=== PATIENT | male | born 1985 ===

== ENCOUNTER 2016-11-28 09:10 | Day surgery (SDC) | payer OTHER ==
[2016-11-21 10:21] VITALS: BMI 32.3
[2016-11-21 10:23] VITALS: RESP 18
[2016-11-28 10:09] LABS: URINE BILIRUBIN NEGATIVE (NEGATIVE); URINE BLOOD NEGATIVE (NEGATIVE); URINE COLOR YELLOW (YELLOW); URINE GLUCOSE (UA) NEG (Normal); URINE KETONE NEGATIVE (NEGATIVE); URINE LEUKOCYTE ESTERASE NEG Leu/uL (Negative); URINE PROTEIN NEGATIVE (NEGATIVE); URINE UROBILINOGEN 0.2-1.0 mg/dL (0.2-1.0); WBC URINE < 1 /hpf (0-5)
[2016-11-28] MEDS ORDERED: Propofol 10 mg/ml Inj (100 ml) IV SCH (12:15)
[2016-11-28] MEDS ORDERED: Remifentanil 2 MG PDS IV ONE (12:34)
[2016-11-28] MEDS ORDERED: Bupivacaine HCl 0.5% PF (30 ml) Inj ONE (12:39)
[2016-11-28] MEDS ORDERED: APROTININ/FIBRINOGEN(TISSEEL) ONE (12:39)
[2016-11-28] MEDS ORDERED: Thrombin Topical 5,000 IU Spray Kit ONE (12:39)
[2016-11-28] MEDS ORDERED: Dexamethasone 4 mg/1 ml ONE (12:39)
[2016-11-28] MEDS ORDERED: SENSORCAINE 0.5% W/EPINEPHRINE 50ML MDV IJ ONE (12:41)
[2016-11-28] MEDS ORDERED: Absorbable Gelatin Sponge Size 100 ONE (12:41)
[2016-11-28] MEDS ORDERED: Rocuronium 10 mg/ml (5 ml) ONE (12:44)
[2016-11-28] MEDS ORDERED: Midazolam 2 MG/2 ML VIAL ONE (12:44)
[2016-11-28] MEDS ORDERED: Succinylcholine 200 mg/10 ml Inj IV ONE (12:44)
[2016-11-28] MEDS ORDERED: Propofol 10 mg/ml Inj (20 ML) ONE ×2 (12:44→13:24)
[2016-11-28] MEDS ORDERED: ePHEDrine 50 mg/ml Inj ONE (12:51)
[2016-11-28] MEDS ORDERED: Absorbable Gelatin Sponge Size 100 TP ONE (13:11)
[2016-11-28] MEDS ORDERED: Thrombin Topical 5,000 IU Spray Kit TOP ONE (13:11)
[2016-11-28] MEDS ORDERED: Lactated Ringer's 1,000 ML IV ONE (13:11)
[2016-11-28] MEDS ORDERED: Neostigmine Methylsulfate 3mg/3ml Syringe IV ONE (13:50)
[2016-11-28] MEDS ORDERED: Lactated Ringer's 1,000 ML IV SCH (14:25)
[2016-11-28 17:08] VITALS: BP 126/70; PULSE 69; TEMP 97.6; O2SAT 95
--- NOTE | 2016-11-29 04:40 | PN ---
SUBJECTIVE: The patient was actually admitted for surgery today. He came in under this name, i.e, Joshua Purcell; however, my office as well as his preoperative MRI as well as his worker comp surgical authorization will have his name as Moises Riley. He did bring an identification that proved his name in fact was Moises Purcell. He was brought into the OR and was thought to be anesthetized; however, at that point in time risk management been informed that as well as the administration that it would be inadvisable to proceed with surgery with this mismatch of name. Additionally, the hospital's trademark attorney was contracted who fully agreed and strongly suggested that we not proceed with the surgery. Therefore, we currently had no other choice other than to avoid the surgery and he was extubated and aroused from the procedure. He was brought to the recovery room in satisfactory condition, will be discharged. We will have to straighten out the administrative and all legal details of this problem and will likely bring him back for surgery in the near future. This whole situation was definitely discussed with him through a wire dropper as well as with his we did speak good Icelandic. Zia Paredes MD
== END 2016-11-28 17:00 | disposition home or self-care (01) ==
LOC: EDBD → H.OPSURG 09:10
PROVIDERS: ATTEND Neurological Surgery
DX: Z02.89 Encounter for other administrative examinations (principal)
CPT/HCPCS: 81003; J0330; J0690; J2250; J2704; J2710; J3010; J7030; J7120

== ENCOUNTER 2016-12-18 06:04 | Inpatient (IN) | payer OTHER ==
[2016-12-18 06:12] VITALS: BMI 33.9
[2016-12-18 07:07] LABS: HEMATOCRIT 46.9 % (35.0-51.0); MEAN CELL VOLUME 88.3 fl (80.0-94.0); MEAN CORPUSCULAR HEMOGLOBIN 30.3 pg (27.0-31.0); MEAN CORPUSCULAR HGB CONC 34.3 g/dL (33.0-37.0); RED CELL DISTRIBUTION WIDTH 13.3 % (11.5-14.5); WHITE BLOOD COUNT 7.7 K/uL (4.8-10.8)
[2016-12-18] MEDS ORDERED: Liquid Adhesive TOP ONE (07:16)
[2016-12-18] MEDS ORDERED: Lidocaine 2% w Epi 1:100,000 Inj IJ ONE (07:16)
[2016-12-18] MEDS ORDERED: Absorbable Gelatin Sponge Size 100 ONE (07:16)
[2016-12-18 07:19] LABS: BLOOD UREA NITROGEN 10 mg/dl (9-20); CALCIUM 9.6 mg/dL (8.4-10.2); CARBON DIOXIDE 16 mmol/L (22-30); CHLORIDE 106 mmol/L (98-107); GFR AFRICAN-AMERICAN > 60; GLUCOSE,RANDOM 171 mg/dL (75-110); SODIUM 141 mmol/l (132-148)
[2016-12-18 07:21] LABS: POTASSIUM 5.2 MMOL/L (3.6-5.0)
[2016-12-18 07:29] LABS: PARTIAL THROMBOPLASTIN TIME 28.5 Seconds (25.6-37.1)
[2016-12-18] MEDS ORDERED: Propofol 10 mg/ml Inj (20 ML) ONE ×5 (07:44→10:46)
[2016-12-18] MEDS ORDERED: Succinylcholine 200 mg/10 ml Inj IV ONE (07:45)
[2016-12-18] MEDS ORDERED: Midazolam 2 MG/2 ML VIAL ONE (07:45)
[2016-12-18] MEDS ORDERED: Bacitracin Ointment 30 GM TUBE ONE (07:56)
[2016-12-18] MEDS ORDERED: Lactated Ringer's 1,000 ML IV ONE ×3 (08:35→13:10)
[2016-12-18] MEDS ORDERED: Rocuronium 10 mg/ml (5 ml) ONE (09:11)
[2016-12-18] MEDS ORDERED: HEMOSTATIC MATRIX 10 ML DIS.NEEDLE TOP ONE ×2 (09:48)
[2016-12-18] MEDS ORDERED: Absorbable Gelatin Sponge Size 100 TP ONE (10:07)
[2016-12-18] MEDS ORDERED: Vancomycin 1 g Inj IVPB ONE (10:08)
[2016-12-18] MEDS ORDERED: Thrombin Topical 5,000 IU Spray Kit TOP ONE (10:08)
[2016-12-18] MEDS ORDERED: Bupivacaine 0.5% Inj(30mL) ONE (11:30)
[2016-12-18] MEDS ORDERED: Bupivacaine 0.5% 50 ML IJ ONE (12:10)
[2016-12-18] MEDS ORDERED: Lactated Ringer's 1,000 ML IV SCH (12:30)
[2016-12-18] MEDS ORDERED: Potassium Ch 20mEq in D5-1/2NS 1,000 ML IV SCH (12:30)
[2016-12-18] MEDS ORDERED: Naloxone 0.4 mg/ml Inj (Adult) IVP PRN (12:33)
[2016-12-18] MEDS: HYDROmorphone 0.5 mg/0.5 ml ISec IVP PRN ×4 (12:50→13:20)
[2016-12-18] MEDS ORDERED: HYDROmorphone 0.5 mg/0.5 ml ISec ONE ×2 (13:45→15:20)
--- NOTE | 2016-12-18 16:38 | RAD ---
PROCEDURE: Fluoroscopy up to 1 hr. HISTORY: PLIF COMPARISON: None TECHNIQUE: FINDINGS: Standard protocol for this study/examination. Submitted images from the current procedure: 12.0 IMPRESSION: Total fluoroscopic time (continuous mode) utilized during the procedure: 84.3 seconds
--- NOTE | 2016-12-19 03:02 | OP ---
PROCEDURE DATE: 12/18/2016 PREOPERATIVE DIAGNOSIS: Herniated disk with disk derangement, L5-S1. POSTOPERATIVE DIAGNOSIS: Herniated disk with disk derangement, L5-S1. OPERATION: 1. Posterior lumbar interbody and lateral fusion of L5-S1. 2. Use of intervertebral devices. 3. Use of non-segmental spinal instrumentation. 4. Use of autograft by means of bone marrow aspiration. SURGEONS: 1. Dr. Schofield. 2. Dr. Paredes. TYPE OF ANESTHESIA: General endotracheal tube intubation. PROCEDURE: The patient was brought to the operative room, general anesthesia was achieved. Intravenous antibiotics were administered in spinal cord. Monitoring leads were placed throughout the patient's body. Realtime monitoring was done by pet care technician in the room, remote monitoring done by physician as well. Sequential compression boots were placed into the patient's legs. Once the antibiotics were administered, a Lam catheter was inserted. The patient was then gently placed on the operating table in the prone position on a Carlos frame, keeping his abdomen free from pressure anteriorly. Care was taken to protect the elbows and knees from pressure points. A Steri-Drape was used to seal off the patient's perineal region from the operative field, and the patient's back was scrubbed and sterilely prepped and draped. The levels of the incision were noted under fluoroscopy and infiltrated lidocaine with epinephrine. Incision was made sharply in the midline, taken down to subcutaneous tissue using sharp and blunt dissection. Hemostasis was achieved using electrocautery. The fascia was divided and stripped laterally off the spinous processes and lamina at the level of the L5 transverse process on each side as well as the sacral ala. Levels were confirmed under fluoroscopic guidance. Soft tissue attachments were cleared off the transverse processes and the interlaminar spaces with electrocautery and a Hollins elevator. Tissue held back with Gelpi retractors. A Leksell rongeur was used to remove the spinous process and thin down the lamina and the laminectomy carried out in a [id number] fashion using Kerrison rongeurs, first in the midline, then laterally to each side. The L5-S1 disk spaces was identified and laminectomy carried out wide enough on each side to allow safe passage of the intervertebral devices. This subsequently allowed safe passage of the intervertebral devices. Hemostasis was achieved with bipolar cautery as well as thrombinated Gelfoam powder. At that time, a trocar was placed in the posterior right ilium and 90 mL of bone marrow aspirate was obtained. This was sterilely passed off to pet care technician who processed it through the [place] [facility] and then sterilely returned any collected mesenchymal stem cells to the OR table. The stem cells were used to process through the IC chamber as well as soaked pieces of cubes and strips of Conform sponge. Thrombinated Gelfoam powder was used for hemostasis at the donor site. We then proceeded with the fusion part of the procedure. The thecal sac was gently retracted and the annulus on the right side at the 5-1 level was incised. The disk material was removed with a combination of pituitary rongeurs and Endplate Bonnie up to and including a size 13. Ring and spoon curettes were then used to remove any remaining tissue from the endplates. We then moved over to the left side, where one could see a large contained herniated disk and this was incised and the remaining disk material was removed. It should be noted that the herniated disk was noted prior to the decompression on right side, when the disk levels were being identified. As mentioned, the same technique was used with the Endplate Bonnie, the pituitary rongeur along with the ring and spoon curettes until we felt the disk space was emptied. The bone grafting substrate, which consisted of the patient's lamina bone, the IC chamber bone and Optium Putty combined. We then packed at the disk space along with the marrow-soaked cubes of Conform. A 9 x 13 Cage graft package was then tamped into place and countersunk. We came back to the right side, where more of the bone grafting substrate along with the Conform cubes were packed into the disk space and another 9 x [address] and countersunk. A high-speed drill was used to corticate through the transverse processes on each side along the L5-S1 facet joint and the sacral ala. It should be noted at the time of the laminectomy, marked amount of instability was noted on the left side of the 5-1 facets and we were able to visualize a pars defect just above the proximal to the 5-1 facet joint. The superior facet, which was lax, was removed and had been combined, morselized and used for the bone graft. After the transverse processes, ala and joints were decorticated, we then proceeded with placing the instrumentation. Under fluoroscopic guidance, the drill was used to gain entry point to right L5 pedicle. Gearshift was used to create a channel through the pedicle and the bone integrity confirmed with a ball-tip probe. A 45 mm x 6.0 mm Expedium screw was inserted. On the left side, similar technique was used with the drill, gearshift tool, the ball-tip probe and a 6.0 x 40 mm Expedium screw was inserted. Stimulation of the gearshift on each side as well as shank on top of each screw revealed no electrophysiologic abnormalities. We moved down to the sacral level, where using fluoroscopic guidance, again the entry point for the screw was noted and opened without the drill. The gearshift tool created a channel for the pedicle and bone integrity confirmed and a 7.0 x 40 mm Expedium screw was inserted. In similar fashion on the left side, the drill, gearshift tool and ball-tip probe were used and another 40 x 7.0 Expedium screw inserted. Again stimulation on each side revealed no electrophysiologic abnormalities. A 35 mm Pre-Cut Lordotic rafa was used to connect the two screws on the left and a 40 mm Pre-Cut Lordotic rafa was used to connect the two screws on the right. Caps were applied and appropriately tightened and torqued. The bone grafting substrate and Conform strips were then placed lateral to the rafa to bridge the decorticated transverse processes to the sacral ala. The midline was copiously irrigated with antibiotic solution and inspected for any debris. Hemostasis was achieved with thrombinated Gelfoam powder as well as liquid thrombin. A large piece of solid Gelfoam was used to cover the exposed neural elements and an A5 Crosslink was then applied to add rotational stability and this was appropriately tightened and torqued as well. Final AP and lateral fluoroscopic views showed excellent position of the intervertebral devices and the hardware. The wound was then closed in layers with interrupted sutures of 0 Vicryl for the muscle and the fascia. The subcutaneous tissue was copiously irrigated with antibiotic solution; 20 mL of 0.5% Marcaine injected into the paraspinal tissue to help with postoperative pain relief. The subcutaneous tissue was closed in layers with interrupted sutures of 2-0 Vicryl and a running subcuticular suture of 3-0 Monocryl was used to close the skin. Steri-Strips with sterile dressing were applied. The patient was gently transferred back on to his bed in the supine position. He was then awakened and extubated. He was taken to recovery room in stable condition, having tolerated the procedure well. His estimated blood loss was 450 mL. He received 1300 mL of crystalloid during the operation. He also received 135 mL back from the Cell Saver. He had urine output of 100 mL over the course of the procedure. He was actively moving all the extremities at the time of the transfer and no permanent electrophysiologic abnormalities were noted at the completion of the case. Tab Schofield MD
[2016-12-19 07:28] LABS: HEMATOCRIT 38.4 % (35.0-51.0); MEAN CELL VOLUME 88.1 fl (80.0-94.0); MEAN CORPUSCULAR HEMOGLOBIN 30.6 pg (27.0-31.0); MEAN CORPUSCULAR HGB CONC 34.7 g/dL (33.0-37.0); RED CELL DISTRIBUTION WIDTH 13.2 % (11.5-14.5); WHITE BLOOD COUNT 8.9 K/uL (4.8-10.8)
[2016-12-19 07:47] LABS: ALB/GLOB RATIO 1.5 (1.0-2.1); ALKALINE PHOSPHATASE 82 U/L (38-126); ALT/SGPT 128 U/L (21-72); AST/SGOT 107 U/L (17-59); BILIRUBIN,TOTAL 2.2 mg/dl (0.2-1.3); BLOOD UREA NITROGEN 6 mg/dl (9-20); CARBON DIOXIDE 24 mmol/L (22-30); CHLORIDE 99 mmol/L (98-107); GFR AFRICAN-AMERICAN > 60; GLUCOSE,RANDOM 180 mg/dL (75-110); POTASSIUM 3.9 MMOL/L (3.6-5.0); SODIUM 139 mmol/l (132-148); TOTAL PROTEIN 6.8 G/DL (6.3-8.2)
--- NOTE | 2016-12-19 10:19 | CP.PCM.PN ---
Subjective - Date & Time of Evaluation Date of Evaluation: 12/19/16 Time of Evaluation: 10:16 - Subjective Subjective: SPINE - POD #1 Pt resting in bed. Complains of signif post=op pain. On [employer] SAL[employer] EXEC[employer] and IVP Dilaudid for breakthrough pain. Tachycardic, systolic BP elevated. May be secondary to pain. Moves all extremities actively. Neuro grossly intact. Plan: Cont post-op care. Will mobilize as pain allows. Objective - Vital Signs/Intake and Output Vital Signs (last 24 hours): Temp Pulse Resp BP Pulse Ox 99.1 F 120 H 18 149/89 95 12/19/16 07:52 12/19/16 08:30 12/19/16 07:52 12/19/16 08:30 12/19/16 07:52 Intake and Output: 12/19/16 12/19/16 06:59 18:59 Intake Total 1000 Output Total 1250 Balance -250 - Medications Medications: Current Medications Acetaminophen (Tylenol 325mg Tab) 650 mg PO Q4 PRN PRN Reason: Fever >100.4 F Last Admin: 12/18/16 17:58 Dose: 650 mg Docusate Sodium (Colace) 100 mg PO BID [facility] Last Admin: 12/19/16 09:22 Dose: 100 mg Gabapentin (Neurontin) 300 mg PO TID [facility] Stop: 12/19/16 23:59 Last Admin: 12/19/16 09:22 Dose: 300 mg Hydromorphone HCl (Dilaudid) 1 mg IVP Q3 PRN PRN Reason: Pain, severe (8-10) Last Admin: 12/19/16 09:21 Dose: 1 mg Hydromorphone HCl (Dilaudid 0.2 Mg/Ml [employer]house Order Selector) 0 mg IV PRN PRN; Protocol PRN Reason: Pain, moderate (4-7) Last Admin: 12/19/16 09:06 Dose: 6 mg Lactated Ringer's (Lactated Ringer's) 1,000 mls @ 100 mls/hr IV .Q10H [facility] Naloxone HCl (Narcan) 0.1 mg IVP Q2M PRN PRN Reason: Excess sedation Stop: 12/19/16 23:59 Ondansetron HCl (Zofran Inj) 4 mg IVP Q6 PRN PRN Reason: Nausea/Vomiting Last Admin: 12/18/16 17:57 Dose: 4 mg - Labs Labs: 12/19/16 07:00 12/19/16 07:00 PT 10.6 Seconds (9.8-13.1) 12/18/16 06:50 INR 1.0 (0.9-1.2) 12/18/16 06:50 APTT 28.5 Seconds (25.6-37.1) 12/18/16 06:50
[2016-12-19] MEDS: HYDROmorphone 0.5 mg/0.5 ml ISec IVP PRN ×2 (13:55→23:27)
[2016-12-19] MEDS: oxyCODONE 20 mg ER Tab (oxyCONTIN) PO SCH ×2 (16:10→21:10)
[2016-12-20] MEDS: HYDROmorphone 0.5 mg/0.5 ml ISec IVP PRN ×2 (06:28→10:07)
--- NOTE | 2016-12-20 08:39 | OP ---
PROCEDURE DATE: 12/18/2016 PREOPERATIVE DIAGNOSES: Lumbar disk derangement and spondylolisthesis at L5-S1. POSTOPERATIVE DIAGNOSES: Lumbar disk derangement and spondylolisthesis at L5-S1, instability with complete left pars fracture. PROCEDURES: L5-S1 decompression, interbody fusion, segmental pedicle screw fixation, and posterolateral fusion with iliac autograft. SURGEON: Zia Paredes MD CO-SURGEON: Tab Schofield MD TYPE OF ANESTHESIA: General endotracheal. ESTIMATED BLOOD LOSS: 350 mL, 135 mL returned by Cell Saver. COMPLICATIONS: None. JUSTIFICATION: The patient is status post to have a severe fall, severe low back pain with radiating radicular pain as well. He failed extensive conservative treatment. Imaging workup with MRI documented disk disruption at L5-S1 with significant left-sided herniation. There was also a grade 1 spondylolisthesis. The patient opted operative intervention by diskectomy, interbody fusion, and segmental fixation. Nature of the this procedure, the rationale behind it, alternatives, potential risks and complications, realistic chance of success and recovery time were discussed with him at length. All of his questions were answered. He fully understood all the above and elected to proceed as offered. DESCRIPTION OF PROCEDURE: The patient was taken to the operating room. He was hooked on to the neurophysiological monitor and carefully intubated and anesthetized, placed on the OR table in prone position on Carlos frame. Care was taken to protect his face, eyes, endotracheal tube, and all bony prominences. The entire low back region was then scrubbed, prepped, and draped in the usual sterile manner. Incision was localized to the lateral flap, we traced out the overlying the spinous processes L4 through the sacrum. After prepping and draping, the incision was made with a 10-blade knife, carried down to the level of the fascia. Deep self-retaining retractors were placed. The fascia was incised and the paraspinal muscle was stripped off the spinous processes and lamina at L5 and the sacrum. The retractors were deepened. The exposure was widened out laterally bilaterally, primarily with cautery to expose the transverse process of L5 and the sacral ala bilaterally. Bleeding controlled throughout with Bovie cautery and thrombinated Gelfoam. At this point, we performed bone graft, and had the placement of a solid piece of Gelfoam that was inserted directly through the fascia into the right superior posterior iliac crest. Approximately 90 mL of bone marrow was aspirated. This was then spun down to obtain the bone marrow mesenchymal cells, which we used to impregnate some collagen-hydroxyapatite sponges as well as some additional allograft. The decompression was begun with the Leksell rongeur. The spinous process of L5 was removed. The lamina was bent down. At this point already we noted some gross instability, particularly on the left side. We then used various-sized Kerrison rongeurs to remove the inferior part of the lamina, and we performed generous medial facetectomy on the right side using a high-speed drill as well as various-sized Kerrison. Foraminotomy was performed at the exiting L5 root. The S1 nerve root was then unroofed and traced out, heading out below the pedicle into its foramen. We exposed the wire via the right lateral disk and the epidural veins above it were coagulated. We then carried forth across the midline to do the identical procedure on the left; however, we noticed literally a floating facet completely disengaged and rather this almost came off with a curette prodding it. We removed it primarily with a Leksell rongeur and some Kerrison. We then unroofed a complete fracture through the pars. We removed all further lamina, which was essentially floating at this point and widened the laminotomy a little bit on this side, again unroofing the S1 root, tracing the L5 root out its way and coagulating the epidural veins. We began the diskectomy by gently retracting the right S1 nerve root medially, disk was incised, various-sized scrapers were used all the way from 8 through 13 mm. We took an x-ray with a 13-mm scraper in place, which barely was engaging through the endplate. We then used large curette to complete the decortication and further removal of disk material with a pituitary rongeur. This identical procedure was then performed on the left side after which bone grafting material, which included products of decompression, additional allograft, and marrow impregnated sponges, were liberally packed into the disk space followed by the placement of 13 x 9 mm Carbon Fiber DePuy fusion cage packed with all the bone graft and material as outlined above. It was tamped into the space and it was controlled and well countersunk. We then performed the identical procedure back on the region of right side placing the identical graft. Visual inspection and lateral fluoroscopy confirmed excellent position of both of these implants. At this point, we turned our attention first to the posterolateral fusion, we used the high-speed drill to decorticate the lateral fusion bed, which included the transverse process, the lateral pars, the facet and lateral facet, and the ala bilaterally. We then placed pedicular screws. Using the technique of identifying the pedicular entrance both visually and fluoroscopically, we used the high-speed drill to drill the cortical layer, passed the gear shifts down the L1 pedicle into the vertebral body. I used a ball-tip probe to sound the passage way to ensure 360 degrees of circumferential bone and then placed the appropriate-sized screw. Additionally, the gear shift and the screws were well stimulated with constant current, while monitoring lower extremity EMG to ensure there was no evidence of transmitted EMG activity. Using this technique, we placed 6.0 diameter screws, 40 and 45 mm length successfully at L5 and we placed 7.0 diameter screws, 40 mm length bilaterally at S1. No screws elicited any meaningful EMG activity, and AP and lateral fluoroscopy confirmed good position of all 4 screws. At this point, we placed the appropriate length titanium rafa into the screw head receptacle on each side, locking nuts were placed and torque wrenched tight. We then placed the appropriate-sized cross connector and torque wrenched it to reset at 3 set-point settings as well. We then packed all remaining bone grafting material into the lateral gutters as outlined above to achieve the posterolateral fusion. We ensured there was no bone material or foreign matter of any sort in or around the epidural space. A layer of thrombinated Gelfoam was placed in this area. The retractors were withdrawn. The muscle was re-approximated using 0 Vicryl. The fascia was closed using interrupted 0 Vicryl sutures and copiously irrigated with antibiotic solution. Subcutaneous was closed in two separate layers with 2-0 Vicryl, the skin closed with a running 3-0 Monocryl with benzoin and Steri-Strips. The dressing was applied. The patient was turned back onto the supine position on a stretcher. He was extubated easily. Noted to be moving both lower extremities with good strength, on his way to the recovery room. All counts were correct. Neurophysiological monitoring including free-run EMG and somatosensory evoked potentials remained stable during the procedure. There were no complications. Zia Paredes MD
[2016-12-20] MEDS: oxyCODONE 20 mg ER Tab (oxyCONTIN) PO SCH ×2 (09:00→20:54)
--- NOTE | 2016-12-20 13:07 | CP.PCM.PN ---
Subjective - Date & Time of Evaluation Date of Evaluation: 12/20/16 Time of Evaluation: 13:03 - Subjective Subjective: SPINE - POD #2 Pt OOB to chair. States he amb to bathroom earlier w PT. Voiding. + flatus. No c /o leg sx's. VSS. Temp 99.7 Neuro grossly intact. Superficial abrasion to lower R leg w a little bleeding (pt states he scratched area himself). Plan: Cont w therapy. Pt has no stairs at home so if he continues to progress hopefully can d/c to home tomorrow. Objective - Vital Signs/Intake and Output Vital Signs (last 24 hours): Temp Pulse Resp BP Pulse Ox 99.1 F 127 H 20 138/86 95 12/20/16 08:02 12/20/16 08:02 12/20/16 08:02 12/20/16 08:02 12/20/16 08:02 Intake and Output: 12/20/16 12/20/16 06:59 18:59 Intake Total 1380 Output Total 1100 Balance 280 - Medications Medications: Current Medications Acetaminophen (Tylenol 325mg Tab) 650 mg PO Q4 PRN PRN Reason: Fever >100.4 F Last Admin: 12/19/16 16:10 Dose: 650 mg Cyclobenzaprine HCl (Flexeril) 5 mg PO TID PRN PRN Reason: Muscle spasm Docusate Sodium (Colace) 100 mg PO BID [facility] Last Admin: 12/20/16 08:56 Dose: 100 mg Hydromorphone HCl (Dilaudid) 1 mg IVP Q3 PRN PRN Reason: Pain, severe (8-10) Last Admin: 12/20/16 10:07 Dose: 1 mg Lactated Ringer's (Lactated Ringer's) 1,000 mls @ 100 mls/hr IV .Q10H [facility] Last Admin: 12/20/16 07:55 Dose: Not Given Ondansetron HCl (Zofran Inj) 4 mg IVP Q6 PRN PRN Reason: Nausea/Vomiting Last Admin: 12/18/16 17:57 Dose: 4 mg Oxycodone HCl (Oxycontin Extended Release Tab) 20 mg PO Q12 [facility] Last Admin: 12/20/16 09:00 Dose: 20 mg - Labs Labs: 12/19/16 07:00 12/19/16 07:00 PT 10.6 Seconds (9.8-13.1) 12/18/16 06:50 INR 1.0 (0.9-1.2) 12/18/16 06:50 APTT 28.5 Seconds (25.6-37.1) 12/18/16 06:50
[2016-12-20] MEDS ORDERED: Oxycodone/Acetaminophen 5/325 mg Tab PO PRN (13:13)
[2016-12-20] MEDS: Oxycodone/Acetaminophen 5/325 mg Tab PO PRN ×2 (13:42→22:48)
[2016-12-20] MEDS: Bacitracin 500 Units/gm Oint Foilpak UD TOP SCH (16:12)
[2016-12-21] MEDS: Oxycodone/Acetaminophen 5/325 mg Tab PO PRN (08:07)
[2016-12-21] MEDS: Bacitracin 500 Units/gm Oint Foilpak UD TOP SCH ×2 (08:08→12:43)
[2016-12-21 08:30] VITALS: RESP 20
[2016-12-21] MEDS: oxyCODONE 20 mg ER Tab (oxyCONTIN) PO SCH (09:10)
[2016-12-21 16:20] VITALS: BP 137/91; PULSE 104; TEMP 97.9; O2SAT 99
== END 2016-12-21 16:55 | disposition home or self-care (01) | DRG 460 ==
LOC: H.OPSURG 06:04 → H.MEDSURG1 13:02
PROVIDERS: ADMIT Neurological Surgery; ATTEND Neurological Surgery
PROC: 0ST20ZZ Resection of Lumbar Vertebral Disc, Open Approach (ICD-10-PCS; 2016-12-18)
PROC: 07DS3ZZ Extraction of Vertebral Bone Marrow, Percutaneous Approach (ICD-10-PCS; 2016-12-18)
PROC: 0SG30A1 (ICD-10-PCS; principal; 2016-12-18 07:45)
DX: M51.26 Other intervertebral disc displacement, lumbar region (principal); M43.17 Spondylolisthesis, lumbosacral region; R00.0 Tachycardia, unspecified; R03.0 Elevated blood-pressure reading, without diagnosis of hypertension